=== PATIENT | female | born 1995 | race African-American/Black ===

== ENCOUNTER 2018-02-04 00:32 | Inpatient (IN) | payer OTHER ==
[~2018-02-04] VITALS: Ht 162.6 cm; Wt 54.2 kg
[2018-02-04 01:27] LABS: BASOPHILS % (AUTO) 0.6 % (0.0-2.0); EOSINOPHILS % (AUTO) 1.3 % (1.0-6.0); HEMOGLOBIN 13.3 g/dL (12.0-16.0); LYMPHOCYTES # (AUTO) 1.5 K/uL (1.0-4.8); MEAN CORPUSCULAR HEMOGLOBIN 29.8 pg (26.0-34.0); MEAN CORPUSCULAR VOLUME 88 fL (80-100); MONOCYTES % (AUTO) 10.5 % (2.0-9.0); NEUTROPHILS # (AUTO) 6.5 K/uL (1.8-7.7); NEUTROPHILS % (AUTO) 71.6 % (40.0-70.0); PLATELET COUNT (AUTO) 347 K/uL (150-450); RED BLOOD CELL COUNT(AUTO) 4.45 MIL/uL (4.00-5.20); RED CELL DISTRIBUTION WIDTH 14.4 % (11.5-14.5)
[2018-02-04 01:31] LABS: ANION GAP 12 mmol/L (8-16); CALCIUM, TOTAL 8.7 mg/dL (8.8-10.5); CARBON DIOXIDE 23 mmol/L (22-29); CHLORIDE 100 mmol/L (98-107); CREATININE 1.03 mg/dL (0.60-1.30); GLOMERULAR FILTR. RATE CALC > 60 mL/min (>60); GLUCOSE,RANDOM 109 mg/dL (70-110); POTASSIUM 3.4 mmol/L (3.5-5.1); SODIUM SERUM 135 mmol/L (136-145); UREA NITROGEN, BLOOD 13 mg/dL (7-18)
[2018-02-04 01:36] LABS: ALANINE AMINOTRANSFERASE 16 U/L (12-78); ALKALINE PHOSPHATASE 54 U/L (46-116); ASPARTATE AMINOTRANSFERASE 13 U/L (15-37); BILIRUBIN,TOTAL 0.7 mg/dL (0.1-1.0); TOTAL PROTEIN, SERUM 8.4 g/dL (6.4-8.2)
[2018-02-04] MEDS ORDERED: DiphenhydrAMINE HCL 50 MG/ML VIAL IM ONE (03:00)
[2018-02-04] MEDS ORDERED: HALOPERIDOL LACTATE 5 MG/ML VIAL IM ONE (03:00)
[2018-02-04] MEDS ORDERED: LORazepam 2 MG/ML VIAL IM ONE (03:00)
[2018-02-04] MEDS ORDERED: POTASSIUM CHLORIDE 10% 40 MEQ/30 ML LIQUID UDCUP PO ONE (03:15)
[2018-02-04] MEDS ORDERED: HALOPERIDOL 5 MG TABLET PO PRN (04:15)
[2018-02-04] MEDS ORDERED: LORazepam 2 MG TABLET PO PRN (04:15)
[2018-02-04] MEDS ORDERED: ZOLPIDEM TARTRATE 10 MG TABLET PO PRN (04:15)
[2018-02-04 07:15] VITALS: BP 101/74
[2018-02-04] MEDS ORDERED: IBUPROFEN 400 MG TABLET PO PRN (08:45)
[2018-02-04] MEDS ORDERED: DOCUSATE SODIUM 100 MG CAPSULE PO PRN (08:45)
[2018-02-04] MEDS ORDERED: CloNIDine HCL 0.1 MG TABLET PO PRN (08:45)
[2018-02-04] MEDS ORDERED: ONDANSETRON HCL 4 MG TABLET PO PRN (08:45)
[2018-02-04] MEDS ORDERED: LOPERAMIDE HCL 2 MG CAPSULE PO PRN (08:45)
[2018-02-04] MEDS ORDERED: MAGNESIUM HYDROXIDE SUSPENSION 30 ML UDCUP PO PRN (08:45)
[2018-02-04] MEDS ORDERED: ACETAMINOPHEN 325 MG TABLET PO PRN (08:45)
[2018-02-04] MEDS ORDERED: MAG HYDROX/AL HYDROX/SIMETH ES 30 ML SUSPENSION UDCUP PO PRN (08:45)
[2018-02-04] MEDS ORDERED: GuaiFENesin/D-METHORPHAN [SUGAR-FREE] 200-20MG/10 ML SYRUP UDCUP PO PRN (08:45)
[2018-02-04] MEDS ORDERED: ALBUTEROL SULFATE HFA 90 MCG/PUFF 8 GM INHALER IH PRN (08:45)
[2018-02-04] MEDS ORDERED: NICOTINE 14 MG/24 HOUR PATCH TD PRN (08:45)
[2018-02-04] MEDS ORDERED: PETROLATUM,WHITE 71 GM JELLY TP PRN (08:45)
[2018-02-04 16:09] VITALS: BP 111/61
[2018-02-05 07:09] VITALS: BP 110/62
[2018-02-05 07:21] LABS: HEMOGLOBIN A1C 5.3 % (4.5-6.2)
[2018-02-05 07:42] LABS: ALANINE AMINOTRANSFERASE 18 U/L (12-78); ALBUMIN 3.6 g/dL (3.4-5.0); ALKALINE PHOSPHATASE 44 U/L (46-116); ANION GAP 8 mmol/L (8-16); ASPARTATE AMINOTRANSFERASE 18 U/L (15-37); BILIRUBIN,TOTAL 0.5 mg/dL (0.1-1.0); CALCIUM, TOTAL 8.5 mg/dL (8.8-10.5); CARBON DIOXIDE 27 mmol/L (22-29); CHLORIDE 104 mmol/L (98-107); CHOL/HDL RATIO 2.5 (3.9-5.7); CHOLESTEROL 155 mg/dL (131-200); CREATININE 0.86 mg/dL (0.60-1.30); GLOMERULAR FILTR. RATE CALC > 60 mL/min (>60); GLUCOSE,RANDOM 81 mg/dL (70-110); HCG,QUANTITATIVE < 1 mIU/mL (0-6); HDL CHOLESTEROL 61 mg/dL (40-60); LDL CHOL (CALC.) 83 mg/dL (0-130); SODIUM SERUM 139 mmol/L (136-145); THYROID STIMULATING HORMONE 0.89 uIU/mL (0.36-3.74); TOTAL PROTEIN, SERUM 7.1 g/dL (6.4-8.2); TRIGLYCERIDES 53 mg/dL (15-150); UREA NITROGEN, BLOOD 16 mg/dL (7-18)
[2018-02-05 08:00] VITALS: BP 113/75
[2018-02-05] MEDS: ASENAPINE 10 MG SUBLINGUAL TABLET SL SCH (08:41)
[2018-02-05 16:35] VITALS: BP 112/78
[2018-02-06 07:13] VITALS: BP 110/72
[2018-02-06] MEDS: ASENAPINE 10 MG SUBLINGUAL TABLET SL SCH (09:44)
[2018-02-06 13:54] VITALS: BP 108/79
[2018-02-06 16:29] VITALS: BP 109/76
[2018-02-07 06:26] VITALS: BP 110/78
[2018-02-07 08:13] VITALS: BP 117/82
[2018-02-07] MEDS: ASENAPINE 10 MG SUBLINGUAL TABLET SL SCH (08:18)
[2018-02-07] MEDS ORDERED: ASEN10TA8 SL (11:48)
[2018-02-07] MEDS ORDERED: ASENAPINE 10 MG SUBLINGUAL TABLET SL SCH (17:00)
== END 2018-02-07 13:30 | disposition home or self-care (01) | DRG 885 ==
LOC: EMS 00:32 → B3A 05:00 → EDBD 05:00
PROVIDERS: ADMIT Psychiatry & Neurology Child & Adolescent Psychiatry; ATTEND Psychiatry & Neurology Child & Adolescent Psychiatry
DX: F20.9 Schizophrenia, unspecified (principal); E87.1 Hypo-osmolality and hyponatremia; R45.851 Suicidal ideations; F29 Unspecified psychosis not due to a substance or known physiological condition; E87.6 Hypokalemia; F41.9 Anxiety disorder, unspecified; Z79.899 Other long term (current) drug therapy; Z23 Encounter for immunization
CPT/HCPCS: 83036; 84443; 90686; 96372; G0480; J1200; J1630; J2060